=== PATIENT | male | born 1990 | race African-American/Black ===

== ENCOUNTER 2019-05-20 04:29 | Emergency (ER) | payer OTHER ==
[~2019-05-20] VITALS: Ht 193 cm; Wt 99.8 kg
--- NOTE | 2019-05-20 04:39 | NUR ---
ED Nurse Note: PT AMBULATED TO ED C/O R EARACHE AND SORE THROAT X 1 WEEK. ao4. nad. vss
[2019-05-20 04:40] VITALS: BP 139/87
[2019-05-20] MEDS ORDERED: IBUPROFEN600 MG ORAL (04:43)
[2019-05-20] MEDS ORDERED: HYDROCODON-ACE1 EA15 ORAL (04:43)
[2019-05-20] MEDS ORDERED: AUGMENTIN 875-1 EAC1 ORAL (04:43)
--- NOTE | 2019-05-20 04:44 | Emergency Room Report ---
History of Present Illness General Chief Complaint: Earache Source: Patient Present Illness HPI 28-year-old male with no past medical history. He presents with chief complaint of sore throat and ear pain. He has sore throat and congestion for about a week. Now with right ear pain. Pain is 8 out of 10. Throbbing in nature. No fever chills. No nausea vomiting or diarrhea. Allergies: Coded Allergies: No Known Allergies (Unverified , 05/20/19) Patient History Past Medical History: see triage record, old chart reviewed Past Surgical History: none Pertinent Family History: none Social History: Denies: smoking Immunizations: other Reviewed Nursing Documentation: PMH: Agreed; PSxH: Agreed Nursing Documentation-PMH Past Medical History: No Stated History Review of Systems Eye: Reports: nose congestion; Denies: eye pain, blurred vision ENT: Reports: ear pain, nose congestion, throat pain; Denies: throat swelling Respiratory: Denies: cough, shortness of breath Cardiovascular: Denies: chest pain, palpitations Gastrointestinal: Denies: abdominal pain, diarrhea, nausea, vomiting Musculoskeletal: Denies: back pain, joint pain Skin: Denies: rash Neurological: Denies: headache, numbness Endocrine: Denies: increased thirst, increased urine Hematologic/Lymphatic: Denies: easy bruising All Other Systems: negative except mentioned in HPI Physical Exam Vital Signs Date Time Temp Pulse Resp B/P (MAP) Pulse Ox O2 Delivery O2 Flow Rate FiO2 05/20/19 04:31 98.4 85 18 139/87 (104) 96 Room Air Vitals normal Sp02 EP Interpretation: reviewed, normal General Appearance: well appearing, no apparent distress, alert Head: normocephalic, atraumatic Eyes: bilateral eye PERRL, bilateral eye EOMI ENT: hearing grossly normal, tonsillar swelling, pharyngeal erythema, tonsillar exudate, other - TM is erythematous Neck: full range of motion, supple, no meningismus Respiratory: chest non-tender, lungs clear, normal breath sounds Cardiovascular #1: regular rate, rhythm, no murmur Gastrointestinal: normal bowel sounds, non tender, no mass, no organomegaly, no bruit, non-distended Musculoskeletal: back normal, gait/station normal, normal range of motion Psychiatric: mood/affect normal Skin: warm/dry Medical Decision Making Diagnostic Impression: Primary Impression: Upper respiratory infection Qualified Codes: J06.9 - Acute upper respiratory infection, unspecified Additional Impression: Right otitis media Qualified Codes: H66.91 - Otitis media, unspecified, right ear ER Course Patient presents with an upper respiratory infection now with a secondary otitis media. Most likely viral in nature and beginning. No evidence of any peritonsillar abscess, retropharyngeal abscess or Raji angina. Will discharge home. Dose of antibiotics and Motrin given here. Last Vital Signs Date Time Temp Pulse Resp B/P (MAP) Pulse Ox O2 Delivery O2 Flow Rate FiO2 05/20/19 04:31 98.4 85 18 139/87 (104) 96 Room Air Status: improved Disposition: HOME, SELF-CARE Condition: Stable Scripts Ibuprofen* (MOTRIN*) 600 Mg Tablet 600 MG ORAL THREE TIMES A DAY, #30 TAB 0 Refills Prov: Yousif Contreras MD 05/20/19 Hydrocodone/Acetaminophen 5-325* (HYDROCODONE/ACETAMINOPHEN 5-325*) 1 Each Tablet 1 TAB ORAL Q6H PRN for For Pain, #10 TAB 0 Refills Prov: Yousif Contreras MD 05/20/19 Amoxicillin/Potassium Clav 875-125* (AUGMENTIN 875-125 TABLET*) 1 Each Tablet 1 TAB ORAL TWICE A DAY, #14 TAB Prov: Yousif Contreras MD 05/20/19 Patient Instructions: Otitis Media, Adult, [id number] Additional Instructions: Increase fluids. Salt water gargle. Follow-up with your doctor in 7 days. Return if worse. Yousif Contreras MD May 20, 2019 04:44
[2019-05-20 04:45] VITALS: BP 139/87
[2019-05-20] MEDS ORDERED: Augmentin 875mg Tab ORAL ONE (04:45)
--- NOTE | 2019-05-20 04:45 | NUR ---
ER DISCHARGE NOTE: Patient is cleared to be discharged per ERMD, pt is aox4, on room air, with stable vital signs. pt was given dc and prescription instructions, pt was able to verbalize understanding, pt id band removed. pt is able to ambulate with steady gait. pt took all belongings.
== END 2019-05-20 04:45 | disposition home or self-care (01) ==
LOC: EMR 04:41
DX: J06.9 Acute upper respiratory infection, unspecified (principal); H66.91 Otitis media, unspecified, right ear
CPT/HCPCS: 99282